=== PATIENT | female | born 1975 | race Caucasian/White ===

== ENCOUNTER 2016-10-18 13:00 | Emergency (ER) | payer OTHER ==
[~2016-10-18] VITALS: Ht 170.2 cm; Wt 67.1 kg
[2016-10-18 13:06] VITALS: BP 118/59
[2016-10-18] MEDS ORDERED: NACL 0.9% 1,000 ML IV ONE (16:00)
[2016-10-18] MEDS ORDERED: fentaNYL 0.05 MG/ML VIAL IVP ONE (16:00)
--- NOTE | 2016-10-18 16:01 | NUR ---
PATIENT PRESENTS TO ED WITH LEFT FLANK, AND LEFT LOWER BACK PAIN X 3 DAYS WITH NAUSEA . PT STATES SHE LEFT 2 TAMPONS IN FOR SEVERAL DAYS, AND DISCOVERED THE TAMPONS 2 DAYS AGO AND INCREASE IN SYMPTOMS SINCE . STATES SHE HAS NAUSEA DENIES V/D; SKIN IS PINK/WARM/DRY; AAOX4 WITH EVEN AND STEADY GAIT; HR EVEN AND REGULAR; PT DENIES ANY FEVER, CP, SOB, OR COUGH AT THIS TIME; PATIENT STATES PAIN OF 9/10 AT THIS TIME; VSS; PATIENT POSITIONED FOR COMFORT; HOB ELEVATED; BEDRAILS UP X1; BED DOWN.
--- NOTE | 2016-10-18 16:02 | NUR ---
Patient ambulated to bed 7.
[2016-10-18] MEDS ORDERED: cefTRIAXone 1,000 MG VIAL ONE (16:30)
--- NOTE | 2016-10-18 16:54 | NUR ---
PATIENT RESTING IN BED, SIDE RAILS UP X 2, FRIEND AT BEDSIDE, PAIN 3/10.
--- NOTE | 2016-10-18 18:55 | NUR ---
IV DC, NO ACTIVE BLEEDING AT SITE, SITE COVERED WITH GUAZE AND BANDAID
--- NOTE | 2016-10-18 19:02 | NUR ---
Patient discharged with v/s stable. Written and verbal after care instructions given and explained. Patient alert, oriented and verbalized understanding of instructions. Ambulatory with steady gait. All questions addressed prior to discharge. ID band removed. Patient advised to follow up with PMD. Rx of NORCO AND LEVAQUIN given. Patient educated on indication of medication including possible reaction and side effects. Opportunity to ask questions provided and answered.
[2016-10-18 19:07] VITALS: BP 123/63
== END 2016-10-18 19:04 | disposition home or self-care (01) ==
LOC: MED 13:00
DX: N39.0 Urinary tract infection, site not specified (principal)
CPT/HCPCS: 81002; 81025; 96365; 96375; 99284; J0696; J3010; J7030; J7060